=== PATIENT | female | born 2000 | race African-American/Black ===

== ENCOUNTER 2018-03-31 12:36 | Emergency (ER) | payer SELFPAY ==
[~2018-03-31] VITALS: Ht 177.8 cm; Wt 56.7 kg
[2018-03-31 12:39] VITALS: BP 143/93
[2018-03-31] MEDS ORDERED: ONDA4TAB7 PO (12:58)
[2018-03-31] MEDS ORDERED: IBUP-1060 PO (12:58)
[2018-03-31] MEDS ORDERED: KETOROLAC 60 MG/2 ML VIAL. IM ONE (13:00)
--- NOTE | 2018-03-31 13:02 | PHYS DOC ---
Past Medical History Past Medical History: No Pertinent History Past Surgical History: No Surgical History Alcohol Use: None Drug Use: None Adult General Chief Complaint Chief Complaint: MENSTRUAL PAIN/CRAMPS [facility] HPI Patient is a 17 year old female who presents with menstrual cramps and nausea. The patient states that she has gotten extremely severe menstrual cramps since the age of 10. She denies seeing a event coordinator marketing and sales for this issue. She states that she went to [facility] recently and was given pain medication as well as nausea medication. She states that the medication is not working. She cannot remember the name of either. Review of Systems Review of Systems Constitutional: Denies fever or chills [] Eyes: Denies change in visual acuity, redness, or eye pain [] HENT: Denies nasal congestion or sore throat [] Respiratory: Denies cough or shortness of breath [] Cardiovascular: No additional information not addressed in HPI [] GI: See history of present illness : See history of present illness Musculoskeletal: Denies back pain or joint pain [] Integument: Denies rash or skin lesions [] Neurologic: Denies headache, focal weakness or sensory changes [] Endocrine: Denies polyuria or polydipsia [] All other systems were reviewed and found to be within normal limits, except as documented in this note. Current Medications Current Medications Current Medications Medications (Trade) Dose Ordered Sig/[facility] Start Time Stop Time Status Last Admin Dose Admin Ketorolac Tromethamine (Toradol Im) 60 mg 1X ONCE 03/31/18 13:00 03/31/18 13:01 DC 03/31/18 13:03 60 MG Allergies Allergies Allergies Coded Allergies Type Severity Reaction Last Updated Verified No Known Drug Allergies 06/23/15 No Physical Exam Physical Exam Constitutional: Well developed, well nourished, no acute distress, non-toxic appearance. [] Cardiovascular:Heart rate regular rhythm, no murmur [] Lungs & Thorax: Bilateral breath sounds clear to auscultation [] Abdomen: Bowel sounds normal, soft, suprapubic tenderness, no masses, no pulsatile masses. [] Skin: Warm, dry, no erythema, no rash. [] Back: No tenderness, no CVA tenderness. [] Extremities: No tenderness, no cyanosis, no clubbing, ROM intact, no edema. [] Neurologic: Alert and oriented X 3, normal motor function, normal sensory function, no focal deficits noted. [] Psychologic: Affect normal, judgement normal, mood normal. [] Current Patient Data Vital Signs Vital Signs Date Time Temp Pulse Resp B/P (MAP) Pulse Ox O2 Delivery O2 Flow Rate FiO2 03/31/18 12:39 98.3 77 20 143/93 (110) 99 Room Air 98.3 EKG EKG [] Radiology/Procedures Radiology/Procedures [] Course & Med Decision Making Course & Med Decision Making Pertinent Labs and Imaging studies reviewed. (See chart for details) []The patient was given a shot of Toradol in the emergency department. Dragon Disclaimer Dragon Disclaimer This electronic medical record was generated, in whole or in part, using a voice recognition dictation system. Departure Departure Impression: Primary Impression: Menstrual cramps Disposition: HOME, SELF-CARE Condition: STABLE Referrals: NO PCP (PCP) HENRIQUE SABILLON MD Patient Instructions: Dysmenorrhea Additional Instructions: Take the medication as directed. Follow up with gynecology for further evaluation of your painful menstrual cramping. If worsening return to the emergency department. Scripts Ondansetron Hcl (ZOFRAN) 4 Mg Tablet 1 TAB PO Q6HRS for nausea, #20 TAB Prov: SUSAN OROURKE [employer] 03/31/18 Ibuprofen (IBUPROFEN) 800 Mg Tablet 800 MG PO PRN Q6HRS PRN for MUSCLE PAIN, #30 TAB Prov: SUSAN OROURKE APRN 03/31/18 SUSAN OROURKE APRN Mar 31, 2018 13:02
== END 2018-03-31 13:13 | disposition home or self-care (01) ==
LOC: ER 12:36
DX: N94.6 Dysmenorrhea, unspecified (principal); R11.0 Nausea; R10.2 Pelvic and perineal pain
CPT/HCPCS: 96372; 99283; J1885